=== PATIENT | male | born 1945 | race African-American/Black ===

== ENCOUNTER 2019-08-22 16:11 | Emergency (ER) | payer MEDICARE ==
[~2019-08-22] VITALS: Ht 188 cm; Wt 108.9 kg
--- NOTE | 2019-08-22 17:09 | Diagnostic Imaging Report ---
EXAMINATION: CHEST SINGLE (PORTABLE) INDICATION: Seizure COMPARISON: None FINDINGS: LINES/TUBES:EKG leads overlie the chest. LUNGS:The lung volumes are low, particularly on the right. No focal consolidation or pulmonary edema. Subsegmental atelectasis at the right lung base. PLEURA:No pleural effusion or pneumothorax. MEDIASTINUM:The cardiomediastinal silhouette appears normal in size and shape. BONES/SOFT TISSUES:No acute osseous injury. ABDOMEN:No free air under the diaphragm. IMPRESSION: Low lung volumes and subsegmental atelectasis at the right lung base. No focal pneumonia or pulmonary edema. Signed by: Nicole Altamirano MD on 08/22/2019 5:05 PM
[2019-08-22 17:19] LABS: BASOPHILS % 0.4 % (0.0-1.0); BILIRUBIN,URINE NEGATIVE (NEGATIVE); COLOR,URINE YELLOW (YELLOW); EOSINOPHILS # (AUTO) 0.3 (0.0-0.4); EOSINOPHILS % 5.7 % (0.0-6.0); HEMATOCRIT 37.8 % (38.2-49.6); HEMOGLOBIN 11.8 g/dL (14.0-18.0); KETONES,URINE NEGATIVE (NEGATIVE); LEUKOCYTE ESTERASE ,URINE SMALL (NEGATIVE); LYMPHOCYTES % 20.6 % (18.0-39.1); MEAN CORPUSCULAR HEMOGLOBIN 27.6 pg (28-32); MEAN CORPUSCULAR HGB CONC 31.2 g/dL (31-35); MEAN CORPUSCULAR VOLUME 88.3 fL (81-99); MONOCYTES # (AUTO) 0.5 (0.2-0.8); MONOCYTES % 10.1 % (4.4-11.3); NEUTROPHILS # (AUTO) 3.2 (2.1-6.9); NEUTROPHILS % 62.8 % (38.7-80.0); NITRITE,URINE POSITIVE (NEGATIVE); PLATELET COUNT 266 x10e3/uL (140-360); PROTEIN,URINE DIPSTICK 2+ (NEGATIVE); RED BLOOD COUNT 4.28 x10e6/uL (4.3-5.7); RED CELL DISTRIBUTION WIDTH 14.8 % (11.7-14.4); URINE UROBILINOGEN 0.2 mg/dL (0.2 - 1)
[2019-08-22 17:20] LABS: CLARITY,URINE CLEAR (CLEAR)
[2019-08-22 17:29] LABS: INR 1.12; PROTHROMBIN TIME 14.9 seconds (11.9-14.5)
[2019-08-22 17:30] LABS: PARTIAL THROMBOPLASTIN TIME 36.2 seconds (23.8-35.5)
[2019-08-22 17:33] LABS: BACTERIA,URINE MANY /HPF
[2019-08-22 17:34] LABS: AMORPHOUS SEDIMENT,URINE MODERATE (FEW)
[2019-08-22 17:39] LABS: ALANINE AMINOTRANSFERASE 14 IU/L (0-55); ALBUMIN 2.7 g/dL (3.5-5.0); ALBUMIN/GLOBULIN RATIO 0.5 (0.8-2.0); ALKALINE PHOSPHATASE 95 IU/L (40-150); ANION GAP 15.6 mmol/L (8-16); BLOOD UREA NITROGEN 21 mg/dL (7-26); BUN/CREATININE RATIO 11 (6-25); CALCIUM 9.2 mg/dL (8.4-10.2); CARBON DIOXIDE 24 mmol/L (22-29); CHLORIDE 105 mmol/L (98-107); CREATINE KINASE 83 IU/L (30-200); CREATININE, SERUM 1.83 mg/dL (0.72-1.25); EST GLOMERULAR FILTRATION RATE 36 ML/MIN (60-); GLUCOSE 117 mg/dL (74-118); MAGNESIUM 2.4 MG/DL (1.3-2.1); POTASSIUM 4.6 mmol/L (3.5-5.1); SODIUM 140 mmol/L (136-145)
--- NOTE | 2019-08-22 17:59 | Diagnostic Imaging Report ---
History:Seizure. Did not hit head Comparison studies:None Technique: Axial images were obtained from the skull base to the vertex. Coronal and sagittal images reconstructed from the axial data. Intravenous contrast: None Dose modulation, iterative reconstruction, and/or weight based adjustment of the mA/kV was utilized to reduce the radiation dose to as low as reasonably achievable. Findings: Scalp/skull: No abnormalities. Extra-axial spaces: No masses. No fluid collections. Brain sulci: Mildly prominent. Ventricles: Exvacuodilatation of the left anterior lateral ventricle. Moderately compensatory dilatation. No hydrocephalus. Parenchyma: Cortical-based hypodensity at the left posterior two thirds of the frontal lobe middle and inferior aspect, with associated volume loss. Hypodensity also noted at the left striatocapsular region with volume loss. 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 Scattered small hypodensities in the supratentorial white matter are small vessel ischemic changes. No masses, hemorrhage or acute cortical vascular insults. Sellar/suprasellar region: No abnormalities. Craniocervical junction: Patent foramen magnum. No Chiari one malformation. Incidental findings: Atherosclerotic calcifications in the carotid siphons . Impression: No acute abnormalities. Chronic findings: 1. 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 The encephalomalacia involves the left inferior motor stripe, which may explain patient's symptoms 2. Moderate central volume loss. 3. Mild supratentorial white matter small vessel ischemic changes. Signed by: DR Yohannes Sharp M.D. on 08/22/2019 5:55 PM
[2019-08-22] MEDS ORDERED: CARBAMAZEPINE 200 MG TAB PO ONE (19:15)
[2019-08-22 19:57] VITALS: BP 155/70
== END 2019-08-22 19:59 | disposition home or self-care (01) ==
LOC: ER 16:11
DX: G40.909 Epilepsy, unspecified, not intractable, without status epilepticus (principal); I10 Essential (primary) hypertension; Z86.73 Personal history of transient ischemic attack (TIA), and cerebral infarction without residual deficits
CPT/HCPCS: 36415; 70450; 71045; 80053; 80156; 80185; 81001; 82550; 82553; 83735; 84484; 85025; 85610; 85730; 87086; 93005; 99284